=== PATIENT | male | born 1945 | race Caucasian/White ===

== ENCOUNTER 2016-08-27 11:56 | Outpatient (CLI) | payer MEDICARE ==
[2016-06-11 12:26] VITALS: BMI 21.4
[~2016-08-27 11:56] MED LIST: ARMOUR THYROID30 MG PO; BENICAR40 MG PO; COUMADIN2.5 MG PO; COUMADIN5 MG PO; DIFLUCAN200 MG PO; EFFIENT10 MG PO; HYDROCODONE-APA1 TAB PO; LIDOCAINE50 GM TOPICAL; NORVASC5 MG PO; PREVACID30 MG PO; PROTONIX40 MG PO; RYTHMOL SR425 MG PO; VANCOMYCIN250 MG/51 PO; XANAX0.5 MG PO
--- NOTE | 2016-08-27 13:04 | NUR ---
1300 PT HAS SPOKEN WITH HENRY MCNAMARA RN REGARDING PICC LINE PLACEMENT AND STATES DOES NOT WANT PICC PLACED. PT AMBULATORY WITH SISTER AT SIDE UPON LEAVING ROOM. DR CAPONE'S OFFICE NOTIFIED.
== END 2016-08-27 13:00 | disposition home or self-care (01) ==
LOC: D.OPS 11:56
DX: C34.90 Malignant neoplasm of unspecified part of unspecified bronchus or lung (principal)